=== PATIENT | female | born 1945 | race African-American/Black ===

== ENCOUNTER 2022-10-17 17:09 | Inpatient (IN) | payer OTHER, MEDICAID ==
[2022-10-17 18:13] LABS: #Eosinphils 0.6 10x3/uL (0.0-0.5); #Monocytes 0.6 10x3/uL (0.0-1.1); #Neutrophils 4.9 10x3/uL (1.5-8.4); %Basophils 0.6 % (0.0-2.0); %Eosinophils 7.8 % (0.0-6.0); %Lymphocytes 15.8 % (18.0-47.0); %Monocytes 8.3 % (0.0-10.0); %Neutrophils 67.2 % (40.0-75.0); Hemoglobin 10.4 g/dL (12.0-15.5); Mean Corpuscular HGB CONC 33.2 g/dL (32.0-36.0); Mean Corpuscular Hemoglobin 29.1 pg (27.0-33.0); Mean Corpuscular Volume 87.7 fl (81.6-98.3); Mean Platelet Volume 9.8 fl (7.4-10.4); Platelet Count 172 10x3/uL (150-450); RBC Distribution Width 13.3 % (11.5-14.5); Red Blood Cell (RBC) Count 3.57 10x6/uL (3.90-5.03); White Blood Cell (WBC) Count 7.3 10x3/uL (3.5-10.5)
[2022-10-17 18:22] LABS: ALT (SGPT) 32 U/L (8-55); AST (SGOT) 29 U/L (5-34); Albumin 4.1 g/dL (3.4-4.8); Alkaline Phosphatase 54 U/L (40-110); Anion Gap 18 mmol/L (10-20); BUN (Urea Nitrogen) 35 mg/dL (9.8-20.1); Bilirubin, Total 0.4 mg/dL (0.2-1.2); Calc. Creatinine Clearance 0 mL/min (70-130); Calcium 10.2 mg/dL (7.8-10.44); Carbon Dioxide 27 mmol/L (23-31); Chloride 99 mmol/L (98-107); Estimated GFR 6; Glucose 105 mg/dL (83-110); Potassium 4.5 mmol/L (3.5-5.1); Protein, Total 7.1 g/dL (5.8-8.1); Sodium 139 mmol/L (136-145)
[2022-10-17 18:42] LABS: CKMB 3.5 ng/mL (0-6.6)
[2022-10-17] MEDS ORDERED: Senokot S 8.6-50 MG TAB PO PRN (19:38)
[2022-10-17 21:15] LABS: Magnesium 2.1 mg/dL (1.6-2.6); Phosphorus 3.1 mg/dL (2.3-4.7)
[2022-10-17 21:20] LABS: Troponin I 0.045 ng/mL (< 0.028)
[2022-10-17] MEDS: Heparin 5,000 UNITS/ML VIAL SC SCH (23:00)
[2022-10-17 23:58] LABS: Troponin I 0.034 ng/mL (< 0.028)
[2022-10-18 01:17] LABS: SARS-CoV-2 NAA Rapid Test Not Detected (NotDetected)
[2022-10-18 06:06] LABS: Anion Gap 17 mmol/L (10-20); BUN (Urea Nitrogen) 42 mg/dL (9.8-20.1); Calc. Creatinine Clearance 7 mL/min (70-130); Calcium 9.6 mg/dL (7.8-10.44); Carbon Dioxide 24 mmol/L (23-31); Chloride 102 mmol/L (98-107); Cholesterol 150 mg/dl (< 200 Desired); Estimated GFR 5; Glucose 88 mg/dL (83-110); HDL Cholesterol 50 mg/dL (>60 Neg Risk); LDL Cholesterol, Calculated 87 mg/dL; Potassium 4.4 mmol/L (3.5-5.1); Sodium 139 mmol/L (136-145); Triglycerides 65 mg/dL (Less than 150)
[2022-10-18 06:09] LABS: #Basophils 0.1 10x3/uL (0.0-0.2); #Eosinphils 0.7 10x3/uL (0.0-0.5); #Monocytes 0.7 10x3/uL (0.0-1.1); #Neutrophils 3.5 10x3/uL (1.5-8.4); %Basophils 0.9 % (0.0-2.0); %Lymphocytes 24.7 % (18.0-47.0); %Monocytes 9.8 % (0.0-10.0); %Neutrophils 53.3 % (40.0-75.0); Hemoglobin 9.8 g/dL (12.0-15.5); Mean Corpuscular HGB CONC 32.7 g/dL (32.0-36.0); Mean Corpuscular Hemoglobin 29.2 pg (27.0-33.0); Mean Corpuscular Volume 89.3 fl (81.6-98.3); Mean Platelet Volume 10.2 fl (7.4-10.4); Platelet Count 164 10x3/uL (150-450); RBC Distribution Width 13.2 % (11.5-14.5); Red Blood Cell (RBC) Count 3.36 10x6/uL (3.90-5.03); White Blood Cell (WBC) Count 6.6 10x3/uL (3.5-10.5)
[2022-10-18] MEDS ORDERED: hydrALAZINE 25 MG TAB PO PRN (08:01)
[2022-10-18] MEDS: Folic Acid 1 MG TAB PO SCH (08:38)
[2022-10-18] MEDS: Gabapentin 100 MG CAP PO SCH (08:38)
[2022-10-18] MEDS: Sevelamer Carbonate 800 MG TAB PO SCH ×3 (08:38→17:24)
[2022-10-18] MEDS: Furosemide 40 MG TAB PO SCH (08:38)
[2022-10-18] MEDS: Heparin 5,000 UNITS/ML VIAL SC SCH ×3 (08:39→20:44)
[2022-10-18] MEDS: Amlodipine 5 MG TAB PO SCH ×2 (08:39→20:46)
[2022-10-18] MEDS ORDERED: Amlodipine 10 MG TAB PO SCH (09:00)
[2022-10-19] MEDS: Gabapentin 100 MG CAP PO SCH (09:27)
[2022-10-19] MEDS: Sevelamer Carbonate 800 MG TAB PO SCH ×3 (09:28→16:23)
[2022-10-19] MEDS: Amlodipine 5 MG TAB PO SCH ×2 (09:28→20:42)
[2022-10-19] MEDS: Furosemide 40 MG TAB PO SCH (09:29)
[2022-10-19] MEDS: Folic Acid 1 MG TAB PO SCH (09:29)
[2022-10-19] MEDS: Heparin 5,000 UNITS/ML VIAL SC SCH ×3 (09:38→20:45)
[2022-10-20 05:03] LABS: #Basophils 0.1 10x3/uL (0.0-0.2); #Eosinphils 0.7 10x3/uL (0.0-0.5); #Monocytes 0.7 10x3/uL (0.0-1.1); #Neutrophils 4.1 10x3/uL (1.5-8.4); %Basophils 0.7 % (0.0-2.0); %Eosinophils 9.7 % (0.0-6.0); %Lymphocytes 25.4 % (18.0-47.0); %Monocytes 8.9 % (0.0-10.0); %Neutrophils 54.6 % (40.0-75.0); Hemoglobin 9.5 g/dL (12.0-15.5); Mean Corpuscular HGB CONC 33.3 g/dL (32.0-36.0); Mean Corpuscular Hemoglobin 29.7 pg (27.0-33.0); Mean Corpuscular Volume 89.1 fl (81.6-98.3); Mean Platelet Volume 9.9 fl (7.4-10.4); Platelet Count 164 10x3/uL (150-450); RBC Distribution Width 13.2 % (11.5-14.5); White Blood Cell (WBC) Count 7.6 10x3/uL (3.5-10.5)
[2022-10-20 05:18] LABS: Anion Gap 17 mmol/L (10-20); BUN (Urea Nitrogen) 67 mg/dL (9.8-20.1); Calc. Creatinine Clearance 5 mL/min (70-130); Calcium 9.9 mg/dL (7.8-10.44); Carbon Dioxide 23 mmol/L (23-31); Chloride 101 mmol/L (98-107); Estimated GFR 3; Glucose 87 mg/dL (83-110); Potassium 5.3 mmol/L (3.5-5.1); Sodium 136 mmol/L (136-145)
[2022-10-20] MEDS: Sevelamer Carbonate 800 MG TAB PO SCH ×3 (08:50→16:30)
[2022-10-20] MEDS: Furosemide 40 MG TAB PO SCH (08:50)
[2022-10-20] MEDS: Gabapentin 100 MG CAP PO SCH (08:51)
[2022-10-20] MEDS: Folic Acid 1 MG TAB PO SCH (08:51)
[2022-10-20] MEDS: Heparin 5,000 UNITS/ML VIAL SC SCH ×3 (08:54→20:52)
[2022-10-20] MEDS: Amlodipine 5 MG TAB PO SCH ×2 (08:54→20:52)
[2022-10-20] MEDS ORDERED: Heparin 10,000 UNITS/ 10 ML VIAL SLOW IVP SCH (22:30)
[2022-10-20 23:18] LABS: HBSAg Index 0.17 S/CO (0-0.99); Hep B Core Total Ab Non-Reactive (NonReactive); Hep B Core Total Index 0.08 S/CO (0-0.79); Hep B Surf Ag Non-Reactive S/CO (NonReactive); Hep C IgG Ab Non-Reactive (NonReactive); Hep C Index 0.04 S/CO (0-0.79)
[2022-10-20 23:21] LABS: Hep B Surf AB Reactive (NonReactive)
[2022-10-20 23:22] LABS: HBSAB Concentration 207.28 mIU/mL
[2022-10-21 01:27] VITALS: BMI 29.3
[2022-10-21 05:02] LABS: #Eosinphils 0.6 10x3/uL (0.0-0.5); #Monocytes 0.6 10x3/uL (0.0-1.1); #Neutrophils 3.7 10x3/uL (1.5-8.4); %Basophils 0.6 % (0.0-2.0); %Eosinophils 9.4 % (0.0-6.0); %Lymphocytes 24.1 % (18.0-47.0); %Monocytes 8.9 % (0.0-10.0); %Neutrophils 56.5 % (40.0-75.0); Hemoglobin 9.9 g/dL (12.0-15.5); Mean Corpuscular HGB CONC 32.7 g/dL (32.0-36.0); Mean Corpuscular Hemoglobin 29.2 pg (27.0-33.0); Mean Corpuscular Volume 89.4 fl (81.6-98.3); Platelet Count 171 10x3/uL (150-450); RBC Distribution Width 13.2 % (11.5-14.5); Red Blood Cell (RBC) Count 3.39 10x6/uL (3.90-5.03); White Blood Cell (WBC) Count 6.6 10x3/uL (3.5-10.5)
[2022-10-21 05:12] LABS: Anion Gap 15 mmol/L (10-20); BUN (Urea Nitrogen) 30 mg/dL (9.8-20.1); Calc. Creatinine Clearance 8 mL/min (70-130); Calcium 9.5 mg/dL (7.8-10.44); Carbon Dioxide 26 mmol/L (23-31); Chloride 102 mmol/L (98-107); Estimated GFR 6; Glucose 86 mg/dL (83-110); Potassium 4.2 mmol/L (3.5-5.1); Sodium 139 mmol/L (136-145)
[2022-10-21] MEDS: Folic Acid 1 MG TAB PO SCH (08:23)
[2022-10-21] MEDS: Furosemide 40 MG TAB PO SCH (08:23)
[2022-10-21] MEDS: Amlodipine 5 MG TAB PO SCH ×2 (08:23→21:31)
[2022-10-21] MEDS: Gabapentin 100 MG CAP PO SCH (08:23)
[2022-10-21] MEDS: Heparin 5,000 UNITS/ML VIAL SC SCH ×2 (08:25→14:28)
[2022-10-21] MEDS: Sevelamer Carbonate 800 MG TAB PO SCH ×3 (08:25→16:17)
[2022-10-21] MEDS ORDERED: Iopamidol 300 61% 100 ML VIAL FS ONE (09:50)
[2022-10-21] MEDS ORDERED: Lidocaine 1% (PF) 30 ML VIAL ONE ×2 (13:05→14:44)
[2022-10-21] MEDS ORDERED: CEFAZOLIN 1 GM VIAL ONE (13:05)
[2022-10-21] MEDS ORDERED: Gentamicin 80 MG/2 ML VIAL ONE (13:06)
[2022-10-21] MEDS ORDERED: Fentanyl 100 MCG/2 ML VIAL ONE (14:32)
[2022-10-21] MEDS ORDERED: Midazolam HCl 2 mg/2 ml Vial ONE (14:33)
[2022-10-21] MEDS: Cephalexin 500 MG CAP PO SCH (21:32)
[2022-10-21] MEDS: Acetaminophen 325 MG TAB PO PRN (21:32)
[2022-10-22 04:33] LABS: #Basophils 0.1 10x3/uL (0.0-0.2); #Eosinphils 0.6 10x3/uL (0.0-0.5); #Monocytes 0.6 10x3/uL (0.0-1.1); #Neutrophils 4.1 10x3/uL (1.5-8.4); %Basophils 0.7 % (0.0-2.0); %Eosinophils 8.5 % (0.0-6.0); %Lymphocytes 22.4 % (18.0-47.0); %Monocytes 9.2 % (0.0-10.0); %Neutrophils 58.8 % (40.0-75.0); Hemoglobin 10.1 g/dL (12.0-15.5); Mean Corpuscular HGB CONC 32.4 g/dL (32.0-36.0); Mean Corpuscular Hemoglobin 29.3 pg (27.0-33.0); Mean Corpuscular Volume 90.4 fl (81.6-98.3); Mean Platelet Volume 9.7 fl (7.4-10.4); Platelet Count 165 10x3/uL (150-450); RBC Distribution Width 13.2 % (11.5-14.5); Red Blood Cell (RBC) Count 3.45 10x6/uL (3.90-5.03)
[2022-10-22 04:48] LABS: Anion Gap 16 mmol/L (10-20); BUN (Urea Nitrogen) 40 mg/dL (9.8-20.1); Calc. Creatinine Clearance 6 mL/min (70-130); Carbon Dioxide 23 mmol/L (23-31); Chloride 102 mmol/L (98-107); Estimated GFR 5; Glucose 82 mg/dL (83-110); Potassium 4.8 mmol/L (3.5-5.1); Sodium 136 mmol/L (136-145)
[2022-10-22] MEDS: Sevelamer Carbonate 800 MG TAB PO SCH ×3 (08:07→16:41)
[2022-10-22] MEDS: Gabapentin 100 MG CAP PO SCH (08:07)
[2022-10-22] MEDS: Cephalexin 500 MG CAP PO SCH (08:08)
[2022-10-22] MEDS: Furosemide 40 MG TAB PO SCH (08:08)
[2022-10-22] MEDS: Amlodipine 5 MG TAB PO SCH (08:08)
[2022-10-22] MEDS: Acetaminophen 325 MG TAB PO PRN (08:08)
[2022-10-22] MEDS: Folic Acid 1 MG TAB PO SCH (08:09)
[2022-10-22 18:22] VITALS: BP 137/91; TEMP 98.3
== END 2022-10-22 18:00 | disposition home or self-care (01) | DRG 242 ==
LOC: CSHERS 17:09 → CSHTELE 20:33 → OBSVTOIN 10-20 09:09
PROVIDERS: ADMIT Family Medicine; ATTEND Family Medicine
PROC: 5A1D70Z Performance of Urinary Filtration, Intermittent, Less than 6 Hours Per Day (ICD-10-PCS; 2022-10-20)
PROC: 0JH606Z Insertion of Pacemaker, Dual Chamber into Chest Subcutaneous Tissue and Fascia, Open Approach (ICD-10-PCS; principal; 2022-10-21)
PROC: 02H63JZ Insertion of Pacemaker Lead into Right Atrium, Percutaneous Approach (ICD-10-PCS; 2022-10-21)
PROC: 02HK3JZ Insertion of Pacemaker Lead into Right Ventricle, Percutaneous Approach (ICD-10-PCS; 2022-10-21)
DX: I49.5 Sick sinus syndrome (principal); N18.6 End stage renal disease; C90.01 Multiple myeloma in remission; I12.0 Hypertensive chronic kidney disease with stage 5 chronic kidney disease or end stage renal disease; G47.33 Obstructive sleep apnea (adult) (pediatric); E11.22 Type 2 diabetes mellitus with diabetic chronic kidney disease; E03.9 Hypothyroidism, unspecified; E78.5 Hyperlipidemia, unspecified; J45.909 Unspecified asthma, uncomplicated; D63.1 Anemia in chronic kidney disease; I08.1 Rheumatic disorders of both mitral and tricuspid valves; Z20.822 Contact with and (suspected) exposure to COVID-19; Z79.899 Other long term (current) drug therapy; Z99.2 Dependence on renal dialysis; Z98.890 Other specified postprocedural states; Z90.49 Acquired absence of other specified parts of digestive tract; Z90.710 Acquired absence of both cervix and uterus
CPT/HCPCS: 33208; 36415; 71045; 80048; 80053; 80061; 82553; 83735; 83880; 84100; 84443; 84484; 85025; 86704; 90935; 93005; 93010; 93306; 94760; 97139; 99152; 99153; C1785; C1898; G0257; G0378; J0690; J1580; J1644; J2001; J2250; J3010; Q9967; U0002

== ENCOUNTER 2022-12-02 12:39 | Outpatient (CLI) | payer OTHER, MEDICAID | END 2022-12-02 12:40 | disposition home or self-care (01) | LOC: CSHSPEC 12:39 | PROVIDERS: ATTEND Internal Medicine Hematology & Oncology | DX: D32.9 Benign neoplasm of meninges, unspecified (principal); E11.9 Type 2 diabetes mellitus without complications; Z99.2 Dependence on renal dialysis; D32.0 Benign neoplasm of cerebral meninges; R90.82 White matter disease, unspecified | CPT/HCPCS: 70553; 82565 ==

== ENCOUNTER 2024-05-09 11:01 | Emergency (ER) | payer OTHER ==
[2024-05-09 12:56] LABS: #Basophils 0.04 10x3/uL (0.0-0.2); #Eosinphils 0.84 10x3/uL (0.0-0.5); #Monocytes 0.31 10x3/uL (0.0-1.1); #Neutrophils 2.67 10x3/uL (1.5-8.4); %Eosinophils 20.2 % (0.0-6.0); %Monocytes 7.5 % (0.0-10.0); %Neutrophils 64.1 % (40.0-75.0); Hematocrit 19.6 % (34.9-44.5); Hemoglobin 6.6 g/dL (12.0-15.5); Mean Corpuscular HGB CONC 33.7 g/dL (32.0-36.0); Mean Platelet Volume 11.2 fL (7.4-10.4); Platelet Count 144 10x3/uL (150-450); RBC Distribution Width 18.6 % (11.5-14.5); Red Blood Cell (RBC) Count 2.13 10x6/uL (3.90-5.03); White Blood Cell (WBC) Count 4.2 10x3/uL (3.5-10.5)
[2024-05-09 13:17] LABS: ALT (SGPT) 8 U/L (8-55); AST (SGOT) 11 U/L (5-34); Albumin 3.4 g/dL (3.4-4.8); Alkaline Phosphatase 76 U/L (40-110); Anion Gap 18 mmol/L (10-20); BUN (Urea Nitrogen) 54 mg/dL (9.8-20.1); Bilirubin, Total 0.6 mg/dL (0.2-1.2); CK (CPK) 56 U/L (29-168); Calc. Creatinine Clearance 0 mL/min (70-130); Calcium 9.2 mg/dL (7.8-10.44); Carbon Dioxide 23 mmol/L (23-31); Chloride 99 mmol/L (98-107); Estimated GFR 4; Globulin 2.7 g/dL (2.4-3.5); Glucose 98 mg/dL (83-110); Potassium 3.4 mmol/L (3.5-5.1); Protein, Total 6.1 g/dL (5.8-8.1); Sodium 137 mmol/L (136-145)
[2024-05-09 13:21] LABS: Troponin I 0.061 ng/mL (< 0.028)
== END 2024-05-09 21:17 | disposition short-term general hospital (02) ==
LOC: CSHERS 11:01
DX: R41.82 Altered mental status, unspecified (principal); I10 Essential (primary) hypertension
CPT/HCPCS: 36415; 70450; 71045; 80053; 82550; 83605; 84145; 84484; 85025; 93005